=== PATIENT | female | born 2000 | race Caucasian/White ===

== ENCOUNTER 2019-03-29 15:44 | Emergency (ER) | payer MEDICAID ==
[2019-03-29 16:08] LABS: Bilirubin Negative (Negative); Blood, Urine Trace (Negative); Clarity Clear (Clear); Glucose, Urine (Dipstick) Negative (Negative); Leukocyte Negative (Negative); Nitrite Negative (Negative); Protein, Urine (Dipstick) Negative (Neg-Trace); Urobilinogen 0.2 mg/dL (Less than 2)
[2019-03-29 16:34] LABS: Bacteria/HPF Rare-Few HPF (None Seen); RBC/HPF 0-3 HPF (0-3); Squamous Epithelial 0-3 HPF (0-3); WBC/HPF 0-3 HPF (0-3)
== END 2019-03-29 17:15 | disposition home or self-care (01) ==
LOC: NAV ERS 15:44
DX: O20.0 Threatened abortion (principal); O99.341 Other mental disorders complicating pregnancy, first trimester; F32.9 Major depressive disorder, single episode, unspecified; F41.9 Anxiety disorder, unspecified; Z87.891 Personal history of nicotine dependence; Z3A.01 Less than 8 weeks gestation of pregnancy
CPT/HCPCS: 81003; 81015; 84702; 86900; 86901; 99284

== ENCOUNTER 2019-03-31 14:37 | Emergency (ER) | payer MEDICAID ==
[2019-03-31 15:08] LABS: #Basophils 0.1 thou/uL (0.0-0.2); #Eosinphils 0.2 thou/uL (0.0-0.7); #Lymphocytes 2.5 thou/uL (1.20-3.40); #Monocytes 0.5 thou/uL (0.11-0.59); %Basophils 1.1 % (0.0-1.0); %Eosinophils 2.4 % (0.0-10.0); %Lymphocytes 34.5 % (28.0-48.0); %Monocytes 6.7 % (0.0-4.0); %Neutrophils 55.3 % (31.0-61.0); Hemoglobin 12.5 g/dL (12.0-16.0); Mean Corpuscular HGB CONC 31.7 g/dL (32.0-36.0); Mean Corpuscular Hemoglobin 28.6 pg (25.0-35.0); Mean Corpuscular Volume 90.1 fL (78.0-98.0); Mean Platelet Volume 8.3 fL (7.4-10.4); Platelet Count 212 thou/uL (130-400); RBC Distribution Width 11.9 % (11.5-14.5); Red Blood Cell (RBC) Count 4.38 mill/uL (4.00-5.20); White Blood Cell (WBC) Count 7.3 thou/uL (4.8-10.8)
[2019-04-04 09:21] LABS: Chlamydia by PCR DETECTED (NotDetected); GC by PCR Not Detected (NotDetected)
== END 2019-03-31 15:22 | disposition short-term general hospital (02) ==
LOC: NAV ERS 14:37
DX: O20.9 Hemorrhage in early pregnancy, unspecified (principal); Z87.891 Personal history of nicotine dependence
CPT/HCPCS: 84702; 85025; 87480; 87491; 87510; 87591; 87660; 99284

== ENCOUNTER → 2019-04-05 | Day surgery (SDC) | payer MEDICAID ==
[~2019-04-05] MED LIST: Azithromycin 250 MG TAB ONE; Lidocaine 1% (PF) 30 ML VIAL ONE; cefTRIAXone\\ROCEPHIN 500 MG VIAL ONE
== END ==
LOC: NAV ER/OP 16:13
PROVIDERS: ATTEND Emergency Medicine
DX: A74.9 Chlamydial infection, unspecified (principal)
CPT/HCPCS: 96372; J0696; J2001

== ENCOUNTER 2019-05-12 20:30 | Emergency (ER) | payer MEDICAID, OTHER ==
[2019-05-12] MEDS ORDERED: Ondansetron ODT 4 MG TAB ONE (21:20)
--- NOTE | 2019-05-12 21:30 | CT ---
CT Brain WO Con History: Injury Comparison: None. Findings: No acute hemorrhage or infarct. No midline shift or mass effect. Ventricular size and extra -axial CSF spaces are normal. The calvarium is intact. Paranasal sinuses and mastoids are clear. Impression: No acute intracranial abnormality.
--- NOTE | 2019-05-12 21:31 | CT ---
CT Cervical Spine WO Con History: Injury. Pain Comparison: None. Findings: The odontoid process is intact. The occipital condyles are intact. No acute fracture or mal alignment of the cervical spine. 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 No acute traumatic facet joint widening. The transverse processes are intact. Lung apices are clear. Impression: No acute fracture or malalignment of the cervical spine.
[2019-05-12] MEDS ORDERED: predniSONE 20 MG TAB ONE (23:15)
[2019-05-12] MEDS ORDERED: Acetaminophen 325 MG TAB ONE (23:15)
== END 2019-05-12 23:20 | disposition home or self-care (01) ==
LOC: NAV ERS 20:30
DX: S06.0X0A Concussion without loss of consciousness, initial encounter (principal); S13.9XXA Sprain of joints and ligaments of unspecified parts of neck, initial encounter; M54.12 Radiculopathy, cervical region; D64.9 Anemia, unspecified; F41.9 Anxiety disorder, unspecified; F32.9 Major depressive disorder, single episode, unspecified; F17.210 Nicotine dependence, cigarettes, uncomplicated
CPT/HCPCS: 70450; 72125; J7512; Q0162

== ENCOUNTER 2019-05-13 18:05 | Emergency (ER) | payer MEDICAID | END 2019-05-13 19:00 | disposition home or self-care (01) | LOC: NAV ERS 18:05 | DX: S13.9XXA Sprain of joints and ligaments of unspecified parts of neck, initial encounter (principal); F07.81 Postconcussional syndrome; F41.9 Anxiety disorder, unspecified; F32.9 Major depressive disorder, single episode, unspecified; F17.210 Nicotine dependence, cigarettes, uncomplicated; D64.9 Anemia, unspecified; Z79.899 Other long term (current) drug therapy; Z71.6 Tobacco abuse counseling; W20.8XXA Other cause of strike by thrown, projected or falling object, initial encounter | CPT/HCPCS: 99406 ==